=== PATIENT | female | born 1955 | race Caucasian/White ===

== ENCOUNTER 2024-10-04 11:23 | Day surgery (SDC) | payer MEDICARE, OTHER ==
[~2024-10-04] VITALS: Ht 154.9 cm; Wt 66.6 kg
[2024-10-04] VITALS (8 sets, daily range): BP systolic 127–156; BP diastolic 78–90
[~2024-10-04 11:23] MED LIST: OMEP20ER PO; THERA-D2000 UNIT PO
[2024-10-04] MEDS ORDERED: CefOXitin Sodium 2,000 MG in NS 50 ML IV SCH (12:05)
[2024-10-04] MEDS ORDERED: Indocyanine Green 25 MG Vial IV ONE (12:05)
[2024-10-04] MEDS ORDERED: Lactated Ringer's 1,000 ML IV SCH (12:05)
[2024-10-04] MEDS ORDERED: CefOXitin 2000 mg Vial ONE (12:28)
--- NOTE | 2024-10-04 12:39 | NUR ---
History, Chart, Medications and Allergies reviewed before start of procedure. Pre-Op teaching done. Pt verbalizes understanding. Patient confirms NPO status and agrees with scheduled surgery.
--- NOTE | 2024-10-04 12:56 | NUR ---
MADE PT AWARE THAT OR ROOM IS RUNNING BEHIND. ASKED PT IF SHE WANTED TO CALL TO LET SPOUSE KNOW. PT DENIED AT THIS TIME.
[2024-10-04] MEDS ORDERED: NS 500 ML IV ONE (13:06)
[2024-10-04] MEDS ORDERED: Bupivacaine 0.5% HCl 5 MG/ML 30MLVIAL ONE (15:44)
[2024-10-04] MEDS ORDERED: FentaNYL Citrate 50 MCG/ML 5 ML Injection ONE (15:47)
[2024-10-04] MEDS ORDERED: Midazolam HCl 1MG / ML 2ML Vial ONE (15:47)
[2024-10-04] MEDS ORDERED: propofoL 20 ML IV ONE (15:48)
[2024-10-04] MEDS ORDERED: Rocuronium Bromide 10 MG/ML 5ML Injection IV ONE ×2 (15:49→16:52)
[2024-10-04] MEDS ORDERED: Ondansetron HCl 2 MG / ML 2ML Vial ONE (15:50)
[2024-10-04] MEDS ORDERED: Dexamethasone Sod Phos 10 MG/ML 1ML VIAL ONE (15:50)
[2024-10-04] MEDS ORDERED: ePHEDrine Sulfate 50 MG/ML 1ML Injection ONE (16:29)
[2024-10-04] MEDS ORDERED: Ondansetron HCl 2 MG / ML 2ML Vial IV PRN (16:50)
[2024-10-04] MEDS ORDERED: ePHEDrine Sulfate 50 MG/ML 1ML Injection IV PRN (16:50)
[2024-10-04] MEDS ORDERED: FentaNYL Citrate 50 MCG/ML 2 ML Injection IV PRN ×2 (16:50→16:55)
[2024-10-04] MEDS ORDERED: Labetalol HCL 5 MG/ML 4ML Injection (Single Dose) IV PRN (16:50)
[2024-10-04] MEDS ORDERED: HYDROmorphone HCl/Pf 1MG SYR IV PRN ×2 (16:50)
[2024-10-04] MEDS ORDERED: Sugammadex Sodium 200 MG/2ML SDV (100 MG/ML) ONE (17:06)
[2024-10-04] MEDS ORDERED: OxyCODONE 5 mg/Acetamin 325 mg TABLET PO PRN (18:10)
[2024-10-04] MEDS ORDERED: Scopolamine Hydrobromide Patch TOP ONE (18:35)
--- NOTE | 2024-10-04 18:53 | NUR ---
Discharge instructions reviewed with patient. Patient verbalizes understanding. Copy given to patient to take home. Dressing to procedure site clean, dry, intact with no visible drainage, swelling, erythema or bruising noted. MILD RASH AROUND INCISION SITES, RASH HAS NOT GROWN. Discharged via wheelchair to private car for ride home.
[2024-10-04] MEDS ORDERED: Scopolamine Hydrobromide Patch TOP SCH (19:10)
== END 2024-10-04 18:55 | disposition home or self-care (01) ==
LOC: ORSCMMR 11:23 → ORD 13:00 → ORSCMMR 14:05
PROVIDERS: Surgery
PROC: BF031ZZ Plain Radiography of Gallbladder and Bile Ducts using Low Osmolar Contrast (ICD-10-PCS; principal; 2024-10-04 13:00)
PROC: 0FT44ZZ Resection of Gallbladder, Percutaneous Endoscopic Approach (ICD-10-PCS; principal; 2024-10-04 13:00)
PROC: 3E0T3BZ Introduction of Anesthetic Agent into Peripheral Nerves and Plexi, Percutaneous Approach (ICD-10-PCS; principal; 2024-10-04 13:00)
DX: K80.10 Calculus of gallbladder with chronic cholecystitis without obstruction (principal); K82.1 Hydrops of gallbladder; E78.5 Hyperlipidemia, unspecified; K21.9 Gastro-esophageal reflux disease without esophagitis; Z87.891 Personal history of nicotine dependence; F32.A Depression, unspecified; Z79.899 Other long term (current) drug therapy; F43.10 Post-traumatic stress disorder, unspecified
CPT/HCPCS: 88304; A9270; J0694; J1100; J2250; J2405; J2704; J3010; J7040; J7120